=== PATIENT | male | born 1955 | race Caucasian/White ===

== ENCOUNTER 2018-03-21 09:14 | Outpatient (CLI) | payer OTHER, SELFPAY ==
[2018-03-21 10:19] LABS: Anion Gap 7.6 mmol/L (3-11); BUN 12 mg/dL (7-18); CO2 27.4 mmol/L (21.0-32.0); CREATININE 0.98 mg/dL (0.70-1.30); Calcium 8.3 mg/dL (8.5-10.1); Chloride 106 mmol/L (98-107); Cholesterol 201 mg/dL (50-200); Glucose 114 mg/dL (70-100); HDL Cholesterol 44 mg/dL (40-60); LDL CHOLESTEROL 136 mg/dL (<100); Potassium 4.4 mmol/L (3.5-5.1); Sodium 141 mmol/L (136-145); Triglyceride 119 mg/dL (30-150)
== END 2018-03-21 09:34 ==
PROVIDERS: PCP Nurse Practitioner Family; Visit Provider Nurse Practitioner Family
DX: I10 Essential (primary) hypertension (principal); E78.5 Hyperlipidemia, unspecified; Z13.1 Encounter for screening for diabetes mellitus
CPT/HCPCS: 36415; 80048; 80061; 83721

== ENCOUNTER 2018-04-19 12:11 | Outpatient (CLI) | payer OTHER, SELFPAY ==
[2018-04-19 12:59] LABS: Hemoglobin A1C 5.9 % (4.5-6.2)
[2018-04-19 17:04] LABS: Albumin 3.9 g/dL (3.4-5.0)
[2018-04-20 13:37] LABS: Calcium 9.1 mg/dL (8.5-10.1)
== END 2018-04-19 12:31 ==
PROVIDERS: PCP Nurse Practitioner Family; Visit Provider Nurse Practitioner Family
DX: E83.51 Hypocalcemia (principal); R73.01 Impaired fasting glucose
CPT/HCPCS: 36415; 82040; 82310; 83036

== ENCOUNTER 2018-07-01 06:10 | Day surgery (SDC) | payer OTHER, SELFPAY ==
[2018-07-01 06:23] VITALS: BP 134/93; PULSE 79; RESP 16; TEMP 36; O2SAT 100
[2018-07-01] MEDS: Lactated Ringers 1,000 ML 30 ML IV (06:43)
--- NOTE | 2018-07-01 08:37 | W.COLOREPORT ---
Date of service: 07/01/18 Time of Service: 08:37 Colonoscopy Report Date of procedure: 07/01/18 Pre-op diagnosis general: Colorectal Cancer Screen Post-op diagnosis procedure note: other (Colon polyp) Procedure: Colonoscopy with biopsy by cold forceps Surgeon: Sedrick Rodarte Anesthesia proc note operative: MAC (Clarke Lange CRNA; ASA 2 Mallampati Class II) Estimated blood loss (mL): 1 Pathology: other (Rectosigmoid colon polyp) Complications: None Disposition: same day Indications: 63 y/o male with history of HTN and hyperlipidemia presents for colonoscopy screening pre-op. His last screening was in 2007, which was unremarkable. He denies a family history of colon cancer. He denies any changes in bowel habits including bloody or black tarry stools, abdominal pain, diarrhea or constipation. He denies constitutional symptoms. Denies use of marijuana or any other recreational or illegal drugs. The colonoscopy procedure has been reviewed with him, and the risks of the procedure have been discussed with the patient. All his questions been answered to his satisfaction. Consents been obtained to proceed with colonoscopy. Prep: Miralax/Dulcolax (Prep quality good) Procedure Start Time: 08:05 Procedure End Time: 08:21 Retraction Time: 12 Findings: In examining the colon from cecum to anus patient was found to have one polyp at the rectosigmoid junction which was less than 1 cm in greatest diameter and removed by cold biopsy forceps no other abnormalities were noted of the colon, rectum, or anorectal junction. Procedure Description: The patient was seen in the day surgery waiting area. His identification was confirmed, and procedure checked. He was then brought to the procedure room. Monitoring for telemetry, blood pressure, oxygen saturation, and end tidal CO2 monitoring were applied. An appropriate time out was performed to confirm, identification, allergies, medication, procedure, was performed. Sedation was titrated for affect by the FIELD SERVICE TECHNICIAN; Once adequate sedation was achieved, I performed a inspection of the external perineum, and a digitial rectal examination. No significant external abnormalities were noted. On digital rectal examination, there was no blood, no masses, good rectal tone, and a normal prostate. I advanced the colonoscope from the anus to the cecum under direct visualization. The cecum was identified by the ileal-cecal valve, and the appendiceal orifice. The scope was then withdrawn in circumferential manner from the cecum to the rectum. A single polyp was noted at the rectosigmoid junction was less than 1 cm in greatest diameter and removed by cold biopsy forceps no other abnormalities were noted of the colon. The scope was then withdrawn into the rectum, and retroflexed. No abnormalities were noted of the rectum or anorectal junction. The scope was then withdrawn, terminating the procedure. There were no complications during the procedure, and the patient tolerated the procedure well. He was returned to the day surgery recovery area in good condition. Plan: We will await pathology before making further recommendations.
[2018-07-01 08:53] VITALS: BP 118/84; PULSE 74; RESP 16; TEMP 36; O2SAT 97
--- NOTE | 2018-07-01 09:20 | BOWEL_PTH ---
PATIENT: Zan Robison LOC: [facility] U#:[id number] AGE/SX: 63/M ROOM: RE07/01/[address]: Sedrick Rodarte DO : 1955 BED: DIS: 07/01/2018 SPEC #: [id number] RECD: 07/01/18 13:00 STATUS: NATALIA REQ #: [id number] KADEN: 07/01/18 09:[address]: Sedrick Rodarte DEPT: Surgical Specimen RECD BY: Marian Márquez ENTERED: 07/01/18 13:01 SP TYPE: Bowel OTHR DR: Krissy Heck APRN Tissues: 1 - BIOPSY BOWEL Procedures: GROSS AND MICRO LEVEL 4 Comments: [id number]
--- NOTE | 2018-07-01 18:17 | W.PM.DSUDISC ---
Discharge Plan Disposition Patient Disposition: HOME Condition: Good Discharge Details Reason For Visit: SCREENING Attending Provider: Sedrick Rodarte Primary Care Provider: Krissy Heck Home Meds and New Rx's Prescriptions: Continued atorvastatin [Lipitor] 40 mg tablet 40 mg PO DAILY Qty: 90 RF: 3 lisinopril 40 mg tablet 40 mg PO DAILY Qty: 90 RF: 3 aspirin [Aspirin Low-Strength] 81 MG tablet,chewable 81 mg PO DAILY Qty: 1 RF: 0 Discontinued bisacodyl [Dulcolax (bisacodyl)] 5 mg tablet,delayed release (DR/EC) 5 mg PO ONCE Qty: 4 RF: 0 polyethylene glycol 3350 17 gram/dose powder 255 g PO ONCE Qty: 255 RF: 0 Discharge Instructions Instructions: Colonoscopy (DC) Stand Alone Forms: Colonoscopy Post Instructions, Mary Banks (DSU) Activity:: Activity as Tolerated Diet:: As Tolerated Discharge Orders Discharge Orders: Discharge Order (Routine); Ordered 07/01/18 Ordered By: Sedrick Rodarte Discharge Data Discharge Date/Time-TO BE ENTERED AT DEPARTURE: 07/01/18 09:37 Discharge Comment: NO ISSUES DS: Diagnosis Discharge Diagnosis (1) Encounter for screening colonoscopy: Status: Resolved Asessment and Plan: Colonoscopy performed
== END 2018-07-01 09:37 | disposition home or self-care (01) ==
PROVIDERS: PCP Nurse Practitioner Family; Visit Provider Surgery
PROC: 0DJD8ZZ Inspection of Lower Intestinal Tract, Via Natural or Artificial Opening Endoscopic (ICD-10-PCS; CPT 45378; principal; 2018-07-01 07:30)
DX: Z12.11 Encounter for screening for malignant neoplasm of colon (principal); D12.5 Benign neoplasm of sigmoid colon; I10 Essential (primary) hypertension
CPT/HCPCS: 45380; 88305

== ENCOUNTER 2019-04-13 11:56 | Outpatient (CLI) | payer OTHER, SELFPAY ==
[2019-04-13 13:06] LABS: Hemoglobin A1C 5.7 % (4.5-6.2)
[2019-04-13 14:25] LABS: BUN 12 mg/dL (7-18); CREATININE 0.97 mg/dL (0.70-1.30); Calcium 8.5 mg/dL (8.5-10.1); Calculated LDL 126 mg/dL; Chloride 102 mmol/L (98-107); Cholesterol 186 mg/dL (50-200); Glucose 103 mg/dL (70-100); HDL Cholesterol 44 mg/dL (40-60); Potassium 4.7 mmol/L (3.5-5.1); Sodium 141 mmol/L (136-145); Triglyceride 83 mg/dL (30-150)
== END 2019-04-13 12:16 ==
PROVIDERS: PCP Nurse Practitioner Family; Visit Provider Nurse Practitioner Family
DX: I10 Essential (primary) hypertension (principal); R73.01 Impaired fasting glucose; E78.5 Hyperlipidemia, unspecified
CPT/HCPCS: 36415; 80048; 80061; 83036

== ENCOUNTER 2020-04-11 01:33 | Outpatient (CLI) | payer OTHER, SELFPAY ==
[2020-04-11 12:50] LABS: Hemoglobin A1C 5.6 % (<5.7)
[2020-04-11 15:28] LABS: Anion Gap 7.3 mmol/L (3-11); BUN 14 mg/dL (7-18); CO2 29.7 mmol/L (21.0-32.0); CREATININE 0.96 mg/dL (0.70-1.30); Calcium 8.8 mg/dL (8.5-10.1); Calculated LDL 107 mg/dL (<100); Chloride 104 mmol/L (98-107); Cholesterol 167 mg/dL (<200); Glucose 99 mg/dL (74-106); HDL Cholesterol 44 mg/dL (40-60); Potassium 4.9 mmol/L (3.5-5.1); Sodium 141 mmol/L (136-145); Triglyceride 81 mg/dL (<150)
== END 2020-04-11 01:53 ==
PROVIDERS: PCP Nurse Practitioner Family; Visit Provider Nurse Practitioner Family
DX: E78.5 Hyperlipidemia, unspecified (principal); I25.10 Atherosclerotic heart disease of native coronary artery without angina pectoris; R73.01 Impaired fasting glucose; I10 Essential (primary) hypertension
CPT/HCPCS: 36415; 80048; 80061; 83036

== ENCOUNTER 2022-08-07 01:37 | Outpatient (CLI) | payer OTHER, SELFPAY ==
[2022-08-07 12:37] LABS: Anion Gap 5.6 mmol/L (3-11); BUN 13 mg/dL (7-18); CO2 30.4 mmol/L (21.0-32.0); CREATININE 1.1 mg/dL (0.70-1.30); Calcium 9.1 mg/dL (8.5-10.1); Calculated LDL 106 mg/dL (<100); Chloride 102 mmol/L (98-107); Cholesterol 177 mg/dL (<200); Glucose 121 mg/dL (74-106); HDL Cholesterol 53 mg/dL (40-60); Potassium 4.3 mmol/L (3.5-5.1); Sodium 138 mmol/L (136-145); Triglyceride 90 mg/dL (<150)
[2022-08-07 12:45] LABS: Hemoglobin A1C 5.5 % (<5.7)
[2022-08-07 13:49] LABS: HCT 47.7 % (40.0-50.0); HGB 15.8 g/dL (13.5-17.5)
== END 2022-08-07 01:38 | disposition home or self-care (01) ==
LOC: LBO 01:37
PROVIDERS: PCP Nurse Practitioner Family; Visit Provider Nurse Practitioner Family
DX: I10 Essential (primary) hypertension (principal); E78.5 Hyperlipidemia, unspecified; R73.01 Impaired fasting glucose
CPT/HCPCS: 36415; 80048; 80061; 83036; 85014; 85018

== ENCOUNTER 2022-09-14 01:24 | Outpatient (CLI) | payer OTHER, SELFPAY ==
--- NOTE | 2022-09-14 07:30 | DI.US_ITS ---
Exam(s) US BREAST LT COMPLETE MAMMO DIAGNOSTIC BI EXAM: MAMMO DIAGNOSTIC BI and U/S breast LT complete CLINICAL HISTORY: l breast lump,n63.20. TECHNIQUE: Craniocaudal and mediolateral oblique Full Field Digital Mammography views with Computer Aided Diagnosis followed by Tomosynthesis and left breast ultrasound. COMPARISON: No priors for comparison. FINDINGS: Mammography/Tomosynthesis: Masses/Architectural Distortion: There is a well-circumscribed 1.7 cm nodule in the medial left breas t. There are no areas of architectural distortion. Microcalcifictions: No suspicious pleomorphic-type are seen. Skin Thickening/Nipple Retraction: None. Complete left breast US: Echotexture: Normal appearance of the glandular tissue. Shadowing: No suspicious foci. Cyst: None. Solid lesions: There is a well-circumscribed ovoid subcutaneous hypoechoic nodule measuring 1.6 x 0.8 x 1.7 cm. It does have a benign appearance with no posterior acoustic shadowing. There does appear to be a communication with the skin surface. This is suspicious for a sebaceous cyst. Ductal dilation: None. IMPRESSION: 1. The nodule corresponds to a homogeneous hypoechoic 1.7 cm nodule at the 9 o'clock position with a communication to the skin surface suggestive of a sebaceous cyst. 2. No definite evidence for malignancy at this time. 3. The findings were discussed with the patient on the date of the examination. BI-RADS Category 2 - Benign Findings Breast Density - Category A - Almost entirely fatty Breast density Category C or D implies that the patient has dense breast tissue. Dense breast tissue can make it harder to find cancer on a mammogram. Dense breast tissue is also associated with an incr eased risk of breast cancer. This information about the result of the mammogram report was provided to the patient to raise their awareness. Use this report when you speak with the patient about their risks for breast cancer, which includes their family history. At that time, you may recommend additional screening tests (Ultrasoun d or MRI) as these tests may add significant information. A negative radiographic report should not delay biopsy if a dominant or clinically suspicious mass is present. Up to ten percent of cancers are not identified on mammography. A negative report may reinforce clinical impression. Adenosis and dense breasts may obscure an underlying neoplasm. False positive reports average 6 to 10%. Patient will receive a letter notifying them of these results.
--- NOTE | 2022-09-14 07:30 | DI.US_ITS ---
Exam(s) US AAA SCREENING EXAM: US AAA SCREENING CLINICAL HISTORY: aaa screening,,z13.6 COMPARISON: No priors for comparison. FINDINGS: Abdominal Aorta: Proximal: 2.2 x 2.3 cm Mid: 2.0 x 1.7 cm Distal: 1.9 x 1.8 cm Iliac's: Right: 1.2 x 1.0 cm Left: 1.2 x 1.1 cm No significant atherosclerotic disease is seen. IMPRESSION: No evidence of abdominal aortic aneurysm. DATA REPOSITORY:
== END 2022-09-14 01:44 ==
LOC: DI 01:24
PROVIDERS: PCP Nurse Practitioner Family; Visit Provider Nurse Practitioner Family
DX: N63.22 Unspecified lump in the left breast, upper inner quadrant (principal); Z13.6 Encounter for screening for cardiovascular disorders; N60.02 Solitary cyst of left breast
CPT/HCPCS: 76642; 76706; 77062; 77066; G0279

== ENCOUNTER 2023-02-05 01:58 | Outpatient (CLI) | payer OTHER, SELFPAY ==
[2023-02-05 12:57] LABS: Calculated LDL 94 mg/dL (<100); Cholesterol 159 mg/dL (<200); HDL Cholesterol 50 mg/dL (40-60); Triglyceride 79 mg/dL (<150)
== END 2023-02-05 01:59 | disposition home or self-care (01) ==
LOC: LBO 01:58
PROVIDERS: PCP Nurse Practitioner Family; Referring Provider Nurse Practitioner Family; Visit Provider Nurse Practitioner Family
DX: E78.5 Hyperlipidemia, unspecified (principal)
CPT/HCPCS: 36415; 80061

== ENCOUNTER 2024-03-17 06:10 | Day surgery (SDC) | payer OTHER, SELFPAY ==
--- NOTE | 2024-03-16 19:11 | W.PM.DSUDISC ---
Date of service: 03/17/24 Time of Service: 07:50 Discharge Plan Disposition Patient Disposition: Home Condition: Good Discharge Details Reason For Visit: screening colonoscopy Attending Provider: Kurt Manuel Primary Care Provider: Melvin Chase Home Meds and New Rx's Prescriptions: Continued atorvastatin 80 mg tablet 80 mg PO DAILY Qty: 90 3RF lisinopril 40 mg tablet 40 mg PO DAILY Qty: 90 3RF aspirin [Aspirin Low-Strength] 81 MG tablet,chewable 81 mg PO DAILY Qty: 1 Rx Instructions: sometimes takes 325 mg Discharge Instructions Instructions: Diverticulosis Additional Instructions: Jas, it was a pleasure meeting you today, and I hope the procedure was comfortable for you. The colonoscopy went very smoothly, and your prep was excellent. I could see everything fine. I did not see any tumors or polyps today. Incidentally, I did find a little bit of diverticulosis. Diverticula are little weak spots in the muscular part of the colon wall. These typically accumulate as we get older. Maintaining a diet that is rich in fiber, staying well-hydrated, and avoiding constipation are probably the main strategies in helping prevent it from causing any problems. I will attach a little bit of information with your discharge stuff today to provide an overview on diverticulosis. Although you had no polyps today, because of the nature of the polyp that you had removed previously, I would recommend another 5-year interval for your next colonoscopy. If that 1 is negative, you could return back to a 10-year screening interval. If you need anything, or have any questions, please do not hesitate to ask. 1. If tolerated, consume a soft, low fiber diet for 1-2 days. 2. Do not drive, drink alcohol, operate machinery, make critical decisions, or do activities that require coordination or balance for 24 hours. 3. Because air was put into your colon during the procedure, expelling air from your rectum (passing gas or farting) is normal. 4. You may not have a bowel movement for 1-3 days because of the colonoscopy prep. This is normal. 5. Go directly to the emergency room if you notice any of the following: Develop chills (warm to touch), or if you have a thermometer and your temperature is above 101 Difficulty breathing or difficultly swallowing Persistent vomiting Severe abdominal pain, other than gas cramps Severe chest pain Black, tarry stools Any bleeding ? exceeding one tablespoon 6. Call your physician if the site where your intravenous was started becomes red, swollen, painful, and warm to touch. 7. Your physician has reviewed your pre-procedure medications. Please continue to take those medications as previously ordered. You will be given specific information/education regarding any changes to your medications before leaving. Activity:: Activity as Tolerated Diet:: As Tolerated Discharge Orders Discharge Orders: Discharge Order (Routine); Ordered 03/16/24 Ordered By: Kurt Manuel DS: Diagnosis Discharge Diagnosis (1) Encounter for screening colonoscopy: Status: Acute Asessment and Plan: Diverticulosis otherwise negative screening colonoscopy. Based on history of adenomatous polyps recommend another 5-year interval
--- NOTE | 2024-03-16 19:12 | W.COLOREPORT ---
Date of service: 03/17/24 Time of Service: 07:51 Colonoscopy Report Date of procedure: 03/17/24 Pre-op diagnosis general: screening colonoscopy Post-op diagnosis procedure note: other (Diverticulosis) Procedure: colonoscopy Surgeon: Kurt Manuel Anesthesia Type: General:No Airway Estimated blood loss (mL): 0 Pathology: none sent Complications: None Disposition: same day Indications: Zan is a 68 year old man with a history of adenomatous polyps who needs his next screening colonoscopy Prep: Miralax/Dulcolax Procedure Start Time: 07:29 Procedure End Time: 07:45 Retraction Time: 7 Findings: Rare sigmoid diverticulosis, otherwise negative screening colonoscopy Procedure Description: After the induction of anesthesia, and with the patient in left lateral decubitus position, I began by performing an external anorectal exam.? Perineum and skin were normal, as was the anal verge.? There was no evidence of external hemorrhoids.? Next, I performed a digital rectal exam.? I did not appreciate any abnormal findings.? Next, I advanced a colonoscope into the rectal vault.? I performed retroflexion.? This appeared normal.? Using insufflation, I then advanced the colonoscope beyond the rectal folds and into the sigmoid colon before advancing towards the cecum.? The quality of the prep was outstanding.? The scope was noted to be in the cecum by identification of the ileocecal valve and appendiceal orifice.? I then began withdrawing the colonoscope using repeated irrigation as necessary for full evaluation of the colonic mucosa. ?There were a few diverticula scattered through the sigmoid colon. once the scope was withdrawn to the level of the rectum, great care was taken to examine portions of the rectal folds.? Finally, the scope was withdrawn and the patient was brought to the same-day surgery recovery unit as the anesthetic wore off. ?The findings and instructions were shared with the patient prior to discharge. [employer] Bowel Prep [employer] Bowel Prep Right Colon: 3 Left Colon: 3 Transverse Colon: 3 Total Score: 9
[2024-03-17 06:31] VITALS: BP 142/68; PULSE 74; RESP 18; TEMP 36.5; O2SAT 99
[2024-03-17] MEDS: Lactated Ringers 1,000 ML 80 ML IV (06:59)
--- NOTE | 2024-03-17 07:02 | ANES.PREOP_ITS ---
General Info Date of Service Date Performed: 03/17/24 Height: 5 ft 5.75 in Weight: 81.4 kg Body Mass Index (BMI): 29.2 Surgical Procedure: Operation Date: 03/17/24 07:35 Proposed Procedure Side Surgeon berna Manuel MD Meds Allergies and Home Medications Allergies Allergy/AdvReac Type Severity Reaction Status Date / Time No Known Allergies Allergy Verified 03/17/24 06:24 Home Medication ?Medication ?Instructions ?Recorded aspirin 81 mg chewable tablet 81 mg PO DAILY #1 tab-cap 02/03/13 (Aspirin Low-Strength) atorvastatin 80 mg tablet 80 mg PO DAILY #90 tab-caps 02/11/23 lisinopril 40 mg tablet 40 mg PO DAILY #90 tab-caps 02/11/23 Current Visit Medications: Current Medications Generic Name Dose Route Start Last Admin Trade Name Freq PRN Reason Stop Dose Admin Ringer's Solution 1,000 mls @ 80 mls/hr 03/17/24 06:00 03/17/24 06:59 IV 03/17/24 23:59 80 mls/hr INFUSION PEDRO Administration IV Miscellaneous Supplies 1 each 03/17/24 06:00 Iv Access IV 03/17/24 23:59 DIRECTED PEDRO Ondansetron HCl 4 mg 03/16/24 19:13 Ondansetron 4 Mg/2 Ml Vial IVP 04/15/24 19:12 Q4H PRN PRN Nausea / Vomiting Sodium Chloride 0 ml 03/17/24 06:00 Normal Saline Flush 10 Ml Syr IV 03/17/24 23:59 PRN PRN Sodium Chloride 0 ml 03/17/24 06:00 Normal Saline 10 Ml Vial IJ 03/17/24 23:59 DIRECTED PRN Sterile Water 0 ml 03/17/24 06:00 Water,Injection,Sterile 10 Ml Vial IJ 03/17/24 23:59 DIRECTED PRN PFSH Active Problems Active Problems: Problem Status Onset Code Encounter for screening colonoscopy Acute Z12.11 Medial epicondylitis, left elbow Acute M77.02 IFG (impaired fasting glucose) Chronic R73.01 Hyperlipidemia Chronic E78.5 Rosacea Chronic 06/25/17 L71.9 Essential hypertension Chronic 06/25/17 I10 ASCVD (arteriosclerotic cardiovascular disease) Chronic 12/16/11 I25.10 Medical History Medical History Left breast mass Mammo/US c/w sebaceous cyst Tubular adenoma of colon (07/01/18) Removed during colonoscopy with Dr Rodarte 07/01/18, repeat colo 5 years Surgical History Surgical History History of heart artery stent 24 years ago [facility] [place] Tobacco Smoking/Tobacco Use Status: Former Tobacco Use Passive smoking exposure: No Alcohol Alcohol Intake: current Alcohol intake frequency: a few times a week Alcohol type: beer and wine Substance Use Substance use: Never Substance use type: does not use Vital Signs and Lab Results Vital Signs Most Recent Vital Signs in EMR: Most Recent Vital Signs Temp Pulse Resp BP Pulse Ox 36.5 C 74 18 142/68 H 99 03/17/24 06:31 03/17/24 06:31 03/17/24 06:31 03/17/24 06:31 03/17/24 06:31 Lab Results Blood Type / Crossmatch: No Data to Display Complete Blood Count: No Data to Display Complete Metabolic Panel: No Data to Display Liver Function Panel: No Data to Display Coagulation Panel: No Data to Display Cardiac Panel: No Data to Display Arterial Blood Gas: No Data to Display Venous Blood Gas: No Data to Display Pancreas Panel: No Data to Display Thyroid Panel: No Data to Display Infectious Disease: No Data to Display Blood Cultures: No Data to Display Toxicology Panel: No Data to Display Anesthesia Assessment and Plan Anesthesia History Personal History: No History of Anesthesia Complications Family History: No Family History of Anesthesia Complications Exercise Tolerance Exercise Tolerance: Metabolic Equivalents>4 Pertinent Negatives Pertinent Negatives: No Symptoms of GERD, No Major Cardiovascular Symptoms or Complaints and No Major Pulmonary Symptoms or Complaints Cardiac & Pulmonary Exam Cardiac Exam: Normal S1/S2 Heart Sounds Pulmonary Exam: Clear Bilateral Breath Sounds Implantable Cardiac Device Does patient have a Pacemaker or an ICD?: No Airway Exam Known Difficult Airway: No Mallampati Class: 2 Mouth Opening: Normal (> 3cm) Thyromental Distance: Greater than 3 cm Neck Range of Motion: Full ROM Neck Circumference: Normal Teeth Condition: Normal Dentition ASA Classification ASA Score: ASA 2 Emergency Case?: No NPO Status NPO Status: NPO Clears >2 hours, Solids >8 hours Anesthesia Plan Resuscitation Status: Full Code Anesthesia Technique: General Anesthesia Airway Planned: Natural Airway Monitors Used: Standard Monitors
[2024-03-17 07:05] VITALS: BMI 29.2
[2024-03-17 07:49] VITALS: BP 120/77; PULSE 67; RESP 18; TEMP 36.8; O2SAT 98
--- NOTE | 2024-03-17 07:56 | W.ANESPOSTOP ---
Postoperative Evaluation Date, Time and Location Date Performed: 03/17/24 Time Performed: 09:55 Patient Location: Day Surgery Unit Vital Signs Most Recent Imported Vital Signs: Most Recent Vital Signs Temp Pulse Resp BP Pulse Ox 36.8 C 67 18 120/77 98 03/17/24 07:49 03/17/24 07:49 03/17/24 07:49 03/17/24 07:49 03/17/24 07:49 Pain Score Most Recent Pain Score: Most Recent Pain Score Pain Level 0 03/17/24 07:49 Assessment Mental Status: Awake (Alert & Oriented to Patient Baseline) Airway and Respiratory Function: Patent airway with normal (patient baseline) respiratory exam Cardiovascular Function: Hemodynamically Stable Hydration Status: Adequately Hydrated Nausea & Vomiting: No Nausea or Vomiting Pain: Pt. Denies Any Pain Peripheral Nerve Block: Patient did not receive a nerve block
[2024-03-17 08:19] VITALS: BP 133/79; PULSE 67; RESP 18; TEMP 36.7; O2SAT 98
== END 2024-03-17 08:24 | disposition home or self-care (01) ==
LOC: SUR 06:10
PROVIDERS: PCP Family Medicine; Visit Provider Surgery
PROC: 0DJD8ZZ Inspection of Lower Intestinal Tract, Via Natural or Artificial Opening Endoscopic (ICD-10-PCS; CPT 45378; principal; 2024-03-17 07:30)
DX: Z12.11 Encounter for screening for malignant neoplasm of colon (principal); K57.30 Diverticulosis of large intestine without perforation or abscess without bleeding
CPT/HCPCS: 45378; J2001; J2704

== ENCOUNTER 2024-03-23 12:54 | Outpatient (CLI) | payer OTHER, SELFPAY ==
[2024-03-23 13:39] LABS: Anion Gap 6.5 mmol/L (3-11); BUN 13 mg/dL (7-18); CO2 30.5 mmol/L (21.0-32.0); Calcium 8.9 mg/dL (8.5-10.1); Calculated LDL 82 mg/dL (<100); Chloride 106 mmol/L (98-107); Cholesterol 143 mg/dL (<200); Estimated GFR 83.01 (mL/min/1.73m2); Glucose 97 mg/dL (74-106); HDL Cholesterol 41 mg/dL (40-60); Potassium 4.6 mmol/L (3.5-5.1); Sodium 143 mmol/L (136-145); Triglyceride 101 mg/dL (<150)
== END 2024-03-23 12:55 | disposition home or self-care (01) ==
LOC: LBO 12:54
PROVIDERS: PCP Family Medicine; Visit Provider Family Medicine
DX: E78.5 Hyperlipidemia, unspecified (principal); I10 Essential (primary) hypertension
CPT/HCPCS: 36415; 80048; 80061

== ENCOUNTER 2024-10-16 12:51 | Outpatient (CLI) | payer OTHER, SELFPAY ==
--- NOTE | 2024-10-16 12:45 | RT.EKG_ITS ---
APPROVED REPORT Exam: Resting ECG Reason for Exam: chest pain and pt reports angina Patient Location: O HR:60 bpm ECG Measurements Heart Rate 60 AXIS NE 142 P 30 QRSd 91 QRS 11 QT 453 T 28 QTc 453 Conclusion Sinus rhythm...normal P axis, V-rate 50- 99 Normal Electrocardiogram
== END 2024-10-16 12:52 | disposition home or self-care (01) ==
LOC: DI.KIM 12:53
PROVIDERS: PCP Family Medicine; Visit Provider Nurse Practitioner
DX: R07.9 Chest pain, unspecified (principal); I20.9 Angina pectoris, unspecified
CPT/HCPCS: 93010

== ENCOUNTER 2024-10-17 08:03 | Outpatient (CLI) | payer OTHER, SELFPAY | END 2024-10-17 08:04 | disposition home or self-care (01) | LOC: DI.CARD 08:04 | PROVIDERS: PCP Family Medicine; Visit Provider Internal Medicine Cardiovascular Disease | DX: I25.10 Atherosclerotic heart disease of native coronary artery without angina pectoris (principal) | CPT/HCPCS: 93010 ==

== ENCOUNTER 2024-10-17 15:08 | Outpatient (CLI) | payer OTHER, SELFPAY ==
[2024-10-17 12:17] LABS: HCT 45.8 % (40.0-50.0); HGB 14.9 g/dL (13.5-17.5); MCH 28.8 pg (27.0-33.0); MCHC 32.5 % (32.0-36.0); MCV 88 fL (80-95); MPV 9.8 fL (8.0-11.0); Platelet Count 178 10^3/uL (130-400); RBC 5.18 10^6/uL (4.36-5.78); RDW 13.1 % (11.8-14.1); RDW-SD 42.5 fL; WBC 4.44 10^3/uL (4.4-10.8)
[2024-10-17 12:30] LABS: INR 1.1 (0.9-1.1); PTT Activated 26.7 sec (20.6-30.2); Prothrombin Time 10.9 sec (9.1-11.1)
[2024-10-17 13:08] LABS: Anion Gap 4.8 mmol/L (3-11); BUN 10 mg/dL (7-18); CO2 30.2 mmol/L (21.0-32.0); CREATININE 0.9 mg/dL (0.70-1.30); Calcium 8.9 mg/dL (8.5-10.1); Chloride 106 mmol/L (98-107); Estimated GFR 93.61 (mL/min/1.73m2); Glucose 104 mg/dL (74-106); Potassium 4.9 mmol/L (3.5-5.1); Sodium 141 mmol/L (136-145)
== END 2024-10-17 15:09 | disposition home or self-care (01) ==
LOC: LBO 15:08
PROVIDERS: PCP Family Medicine; Visit Provider Internal Medicine Cardiovascular Disease
DX: I25.10 Atherosclerotic heart disease of native coronary artery without angina pectoris (principal)
CPT/HCPCS: 36415; 80048; 85027; 85610; 85730

== ENCOUNTER 2025-02-13 07:59 | Outpatient (CLI) | payer OTHER, SELFPAY ==
--- NOTE | 2025-02-13 07:45 | RT.EKG_ITS ---
APPROVED REPORT Exam: Resting ECG Reason for Exam: CAD, afib Patient Location: O HR:46 bpm ECG Measurements Heart Rate 46 AXIS ND 156 P 14 QRSd 97 QRS 1 QT 530 T 67 QTc 464 Conclusion Sinus bradycardia...rate< 50 Borderline T abnormalities, diffuse leads...T flat or neg, V2-V4 Long QTc
== END 2025-02-13 08:00 | disposition home or self-care (01) ==
LOC: DI.CARD 07:59
PROVIDERS: PCP Family Medicine; Visit Provider Internal Medicine Cardiovascular Disease
DX: Z95.1 Presence of aortocoronary bypass graft (principal); I48.91 Unspecified atrial fibrillation; I25.10 Atherosclerotic heart disease of native coronary artery without angina pectoris; R00.1 Bradycardia, unspecified
CPT/HCPCS: 93010

== ENCOUNTER 2025-02-16 11:00 | Outpatient (RCR) | payer OTHER, SELFPAY ==
--- NOTE | 2025-02-16 10:45 | RT.EKG_ITS ---
APPROVED REPORT Exam: Resting ECG Reason for Exam: CR Intake - Baseline EKG Patient Location: O HR:46 bpm ECG Measurements Heart Rate 46 AXIS PA 147 P 32 QRSd 94 QRS 61 QT 534 T 79 QTc 468 Conclusion Sinus bradycardia...rate< 50 Borderline T abnormalities, anterior leads...T flat or neg, V2-V4
== END 2025-03-04 23:59 | disposition home or self-care (01) ==
LOC: CR 11:00
PROVIDERS: PCP Family Medicine; Visit Provider Internal Medicine Cardiovascular Disease
DX: I25.10 Atherosclerotic heart disease of native coronary artery without angina pectoris (principal); Z95.1 Presence of aortocoronary bypass graft
CPT/HCPCS: S9472

== ENCOUNTER 2025-03-02 13:00 | Outpatient (RCR) | payer OTHER, SELFPAY | END 2025-03-04 23:59 | disposition home or self-care (01) | LOC: CR 13:00 | PROVIDERS: PCP Family Medicine; Visit Provider Internal Medicine Cardiovascular Disease | DX: I25.118 Atherosclerotic heart disease of native coronary artery with other forms of angina pectoris (principal); Z51.89 Encounter for other specified aftercare | CPT/HCPCS: S9472 ==

== ENCOUNTER 2025-04-02 08:00 | Outpatient (RCR) | payer OTHER, SELFPAY | END 2025-04-03 23:59 | disposition home or self-care (01) | LOC: CR 08:00 | PROVIDERS: PCP Family Medicine; Visit Provider Internal Medicine Cardiovascular Disease | DX: I25.118 Atherosclerotic heart disease of native coronary artery with other forms of angina pectoris (principal); Z51.89 Encounter for other specified aftercare | CPT/HCPCS: S9472 ==

== ENCOUNTER 2025-04-11 13:00 | Outpatient (RCR) | payer OTHER, SELFPAY | END 2025-05-04 23:59 | disposition home or self-care (01) | LOC: CR 13:00 | PROVIDERS: PCP Family Medicine; Visit Provider Internal Medicine Cardiovascular Disease | DX: I25.810 Atherosclerosis of coronary artery bypass graft(s) without angina pectoris (principal); Z51.89 Encounter for other specified aftercare | CPT/HCPCS: S9472 ==

== ENCOUNTER 2025-05-16 10:40 | Outpatient (CLI) | payer OTHER, SELFPAY ==
[2025-05-16 13:00] LABS: Hemoglobin A1C 5.7 % (<5.7)
[2025-05-16 13:04] LABS: Cholesterol 127 mg/dL (<200); HDL Cholesterol 38 mg/dL (>40)
== END 2025-05-16 10:41 | disposition home or self-care (01) ==
LOC: LBO 10:41
PROVIDERS: Nurse Practitioner; PCP Family Medicine; Visit Provider Family Medicine
DX: R73.03 Prediabetes (principal); E78.5 Hyperlipidemia, unspecified; I10 Essential (primary) hypertension; E11.9 Type 2 diabetes mellitus without complications
CPT/HCPCS: 36415; 80061; 83036